=== PATIENT | female | born 1990 | race African-American/Black ===

== ENCOUNTER 2017-11-17 13:26 | Emergency (ER) | payer OTHER ==
[~2017-11-17] VITALS: Ht 170.2 cm; Wt 63.0 kg
[~2017-11-17 13:26] MED LIST: ENDOCET 5-3251 EACH PO; IBUPROFEN800 MG PO; PRENATAL TABLE1 EAC3 PO
[2017-11-17 14:38] LABS: HEMATOCRIT 39.7 % (36.0-46.0); HEMOGLOBIN 14.3 G/DL (11.9-15.5); MCV 86.1 FL (83-99); PLATELET COUNT 209 K/uL (156-360); RED BLOOD COUNT 4.61 M/uL (3.80-5.20); WHITE BLOOD COUNT 5.1 K/uL (4.1-10.2)
[2017-11-17 14:47] LABS: CHLORIDE 106 mEq/L (99-109); POTASSIUM 3.7 mEq/L (3.7-5.4); SODIUM 137 mEq/L (136-147)
[2017-11-17 14:49] LABS: GLUCOSE 89 mg/dL (70-99)
[2017-11-17 14:53] LABS: CREATININE 0.7 mg/dL (0.6-1.3); GFR ESTIMATE (CALCULATED) > 59 mL/min/; UREA NITROGEN (BUN) 10 mg/dL (9-23)
[2017-11-17 14:59] LABS: TROP-I INTERPRETATION NEGATIVE; TROPONIN-I 0.01 ng/mL (0.0-0.30)
[2017-11-17 15:41] LABS: THYROTROPIN (TSH) 0.82 MIU/L (0.4-5.5)
[2017-11-17 16:05] VITALS: BP 127/86
== END 2017-11-17 16:10 | disposition home or self-care (01) ==
LOC: EME 13:26
PROVIDERS: Nurse Practitioner Family
DX: R00.2 Palpitations (principal); F43.9 Reaction to severe stress, unspecified; Z91.14 Patient's other noncompliance with medication regimen; F17.200 Nicotine dependence, unspecified, uncomplicated; Z82.3 Family history of stroke; Z82.49 Family history of ischemic heart disease and other diseases of the circulatory system
CPT/HCPCS: 71046; 80048; 84443; 84484; 85027; 93005; 99281; 99285